=== PATIENT | male | born 1990 | race Two or more races ===

== ENCOUNTER 2021-05-07 13:45 | Emergency (ER) | payer OTHER ==
--- NOTE | 2021-05-07 14:01 | PCM.EKG ---
#1 Interpretation EKG Date: 05/07/21 Time: 14:00 EKG Interpretation Comments: Sinus rhythm rate of 88 no acute ischemia isolated T wave inversion in V1 intervals are borderline right axis deviation
[2021-05-07] MEDS ORDERED: Sodium Chloride 0.9% 2.5 ML Syringe FLUSH PRN (14:23)
[2021-05-07] MEDS ORDERED: Sodium Chloride 0.9% 10 ML Syringe FLUSH PRN (14:23)
--- NOTE | 2021-05-07 15:02 | EDM.PDOC ---
ED HPI GENERAL MEDICAL PROBLEM - General Chief Complaint: Chest Pain Stated Complaint: HEART FEELS HEAVY Time Seen by Provider: 05/07/21 13:50 Source of Information: Reports: Patient History Limitations: Reports: No Limitations - History of Present Illness INITIAL COMMENTS - FREE TEXT/NARRATIVE: HISTORY AND PHYSICAL: History of present illness: The patient is a 30-year-old male with a history of mitral valve prolapse who presents to the emergency department with complaints of mid to upper left chest pain. The patient presently sees a nurse practitioner Abilio in [place] for his mitral valve prolapse. The patient states that he took a Tylenol PM last night and throughout the night he started to feel this chest discomfort. He states that when he woke up he felt very sluggish and drank some coffee. He states that when he was in bed and he would lie on his left side with his arm reached out that he felt the pain on the left lateral side, otherwise the pain does not radi ate. He denies any nausea or vomiting. He denies any dizziness or shortness of breath. He denies diaphoresis. Dates he has never had this previously. Patient denies any fever, chills, headache, change in vision, syncope or near syncope. Denies any shortness of breath or cough. Denies any abdominal pain, diarrhea, constipation or dysuria. Has not noted any blood in urine or stool. Patient has been eating and drinking appropriately. The patient states that he had been on lisinopril 10 mg daily and increased his dose to 20 mg daily without consulting his doctor. He states that he just did not have time to follow-up. Review of systems: As per history of present illness and below otherwise all systems reviewed and negative. Past medical history: As per history of present illness and as reviewed below otherwise noncontributory. Surgical history: As per history of present illness and as reviewed below otherwise noncontributory. Social history: See social history for further information Family history: As per history of present illness and as reviewed below otherwise noncontributory. Physical exam: General: Well developed and well nourished. Alert and orientated x 3. Nontoxic in appearance and in no acute distress. Vital signs are stable and have been reviewed by me. Nursing notes were reviewed. HEENT: Atraumatic, normocephalic, pupils equal and reactive bilaterally, nega tive for conjunctival pallor or scleral icterus, mucous membranes moist, TMs normal bilaterally, throat clear, neck supple, nontender, trachea midline. No drooling or trismus noted. No meningeal signs. No hot potato voice noted. Lungs: Clear to auscultation bilaterally. No wheezes, rales, or rhonchi. Chest nontender. Normal work of breathing, no accessory muscles used. Heart: S1S2, regular rate and rhythm without overt murmur, gallops, or rubs. No JVD. No peripheral edema Abdomen: Soft, nondistended, nontender. Normoactive bowel sounds. Negative for masses or costovertebral tenderness. Skin: Intact, warm, dry. No lesions or rashes noted. Hematologic: No petechiae or purpra. Mucosa appropriate color and normal nail bed color and refill. Extremities: Atraumatic, moves all extremities per self without difficulty or deficits, negative for cords or calf pain. Neurovascular unremarkable. Neuro: Awake, alert, oriented. Cranial nerves II through XII unremarkable. Cerebellum unremarkable. Motor and sensory unremarkable throughout. Exam nonfocal. Psychiatric: Mood and affect are appropriate. Normal thought process. Answering questions appropriately. Notes: *This patient was seen and evaluated during the 2019 SARS-CoV-2 novel coronavirus pandemic period. Community viral transmission is ongoing at time of this encounter and the emergency department is operating under pandemic response procedures. As stated above the patient is a 30-year-old male with a history of mitral valve prolapse who presents to the emergency department with left-sided chest pain that started last night. The patient has no other symptoms such as nausea vomiting, shortness of breath, diaphoresis, or dizziness. The patient's initial EKG was sinus rhythm with no signs of ST elevation or ischemia as read per Dr. Cordova. I have ordered a cardiac work-up. The patient appears to be comfortable at this time. The patient's CBC is unremarkable. The patient's INR and D-dimer are within normal limits. The patient's chemistry panel is unremarkable. The patient's troponin is within normal limits. The patient's lipase is 90. I informed the patient of his test results and of his heart score of 1 which puts him at low risk for any kind of cardiac event. The patient's blood pressure had been elevated at presentation but after resting and a blood the patient's blood pressure is 136/72 and his heart rate is in the 70s. The patient acknowledges that he feels less full after being in the emergency department. 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 I suggested to the patient that this is most likely muscular in nature and not cardiac. I advised the patient to find some kind of stress relief such as meditation or some kind of breathing techniques to help him get through the bus route. I advised the patient to follow-up with his news producer on Sunday. I gave the patient detailed instructions on when he needs to return to the emergency department. The patient is agreeable with this discharge plan. I have talked with the patient about today's findings, in addition to providing specific details for plan of care. Reassessment at the time of disposition demonstrates that the patient is in no acute distress. The patient is stable for discharge, counseling was provided and we discussed in great detail signs and symptoms that would prompt them to return to the Emergency Department. Medication, follow up and supportive care measures were reviewed and discussed. Voices understanding and is agreeable to plan of care. Denies any further questions or concerns at this time. Diagnostics: CBC, CMP, troponin, CXR, D-dimer, INR, lipase Impression: Chest pain Plan: 1. You were evaluated today on an emergent basis. Your plaints of chest pain were evaluated with an EKG which showed you in normal sinus rhythm and no signs of a heart attack. Your blood work was normal this included an cardiac enzyme known as troponin. As your pain started last night this would have been elevated, however it was within normal range. Your heart score is a 1 which is very low. I suspect this has to do with the stress level you are having and most likely muscular in nature. You can take Tylenol for the discomfort. 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 When you first arrived in the emergency department your blood pressure was slightly elevated but after resting your blood pressure was normal at 136/72. As we discussed if you go home and there is some change in your pain or you become short of breath, become sweaty or clammy, or have some dizziness please return to the emergency department for further evaluation. Be sure to follow-up with your news producer on Sunday. 2. You can alternate Tylenol and ibuprofen as needed for pain and fever management. 3. We encourage you to follow up with your primary care provider and/or recommended specialist in the next few days for re-evaluation and further care/management. 4. If your symptoms should worsen, new symptoms develop or any of the signs and symptoms we discussed should arise please return to the emergency room or call 911 (if needed). Definitive disposition and diagnosis as appropriate pending reevaluation and review of above. - Related Data Allergies Allergy/AdvReac Type Severity Reaction Status Date / Time No Known Allergies Allergy Verified 05/07/21 13:56 Home Meds: Home Meds lisinopriL [Lisinopril] 10 mg PO DAILY 05/07/21 [History] Past Medical History - Past Surgical History Other Cardiovascular Surgeries/Procedures: Mitral valve prolapse Social & Family History - Tobacco Use Tobacco Use Status *Q: Never Tobacco User - Recreational Drug Use Drug Use in Last 12 Months: No ED ROS GENERAL - Review of Systems Review Of Systems: Comprehensive ROS is negative, except as noted in HPI. ED EXAM, GENERAL - Physical Exam Exam: See Below (See dictation) Course - Vital Signs Last Recorded V/S: Last Vital Signs Temp 99.2 F 05/07/21 13:56 Pulse 72 05/07/21 15:07 Resp 16 05/07/21 15:07 BP 144/85 H 05/07/21 15:07 Pulse Ox 96 05/07/21 15:07 - Orders/Labs/Meds Orders: Active Orders 24 hr Category Date Time Status Cardiac Monitoring [RC] . DIRECTED Care 05/07/21 14:23 Active Sodium Chloride 0.9% [Saline Flush] Med 05/07/21 14:23 Active 10 ml FLUSH ASDIRECTED PRN Sodium Chloride 0.9% [Saline Flush] Med 05/07/21 14:23 Active 2.5 ml FLUSH ASDIRECTED PRN Saline Lock Insert [OM.PC] Stat Oth 05/07/21 14:23 Ordered Medication Orders Sodium Chloride (Sodium Chloride 0.9% 10 Ml Syringe) 10 ml FLUSH ASDIRECTED PRN PRN Reason: Keep Vein Open Last Admin: 05/07/21 14:28 Dose: 10 ml Documented by: LISA Sodium Chloride (Sodium Chloride 0.9% 2.5 Ml Syringe) 2.5 ml FLUSH ASDIRECTED PRN PRN Reason: Keep Vein Open Last Admin: 05/07/21 14:28 Dose: 2.5 ml Documented by: LISA Labs: Laboratory Tests 05/07/21 05/07/21 05/07/21 Range/Units 13:58 13:58 13:58 WBC 9.64 (4.0-11.0) K/uL RBC 5.37 (4.50-5.90) M/uL Hgb 15.2 (13.0-17.0) g/dL Hct 44.7 (38.0-50.0) % MCV 83.2 (80.0-98.0) fL MCH 28.3 (27.0-32.0) pg MCHC 34.0 (31.0-37.0) g/dL RDW Std Deviation 39.3 (28.0-62.0) fl RDW Coeff of Melanie 13 (11.0-15.0) % Plt Count 272 (150-400) K/uL MPV 11.00 (7.40-12.00) fL Neut % (Auto) 68.7 (48.0-80.0) % Lymph % (Auto) 19.3 (16.0-40.0) % [place] % (Auto) 9.1 (0.0-15.0) % Eos % (Auto) 2.3 (0.0-7.0) % Baso % (Auto) 0.6 (0.0-1.5) % Neut # (Auto) 6.6 H (1.4-5.7) K/uL Lymph # (Auto) 1.9 (0.6-2.4) K/uL [place] # (Auto) 0.9 H (0.0-0.8) K/uL Eos # (Auto) 0.2 (0.0-0.7) K/uL Baso # (Auto) 0.1 (0.0-0.1) K/uL Nucleated RBC % 0.0 /100WBC Nucleated RBCs # 0 K/uL INR 0.99 D-Dimer, Quantitative 0.21 (0.0-0.50) mg/L FEU Sodium 139 (136-148) mmol/L Potassium 3.9 (3.5-5.1) mmol/L Chloride 103 (98-107) mmol/L Carbon Dioxide 27.3 (21.0-32.0) mmol/L BUN 12 (7.0-18.0) mg/dL Creatinine 1.1 (0.8-1.3) mg/dL Est Cr Clr Drug Dosing 94.14 mL/min Estimated GFR (MDRD) > 60.0 ml/min Glucose 102 (74-106) mg/dL Calcium 9.0 (8.5-10.1) mg/dL Total Bilirubin 0.5 (0.2-1.0) mg/dL AST 18 (15-37) IU/L ALT 46 (14-63) IU/L Alkaline Phosphatase 89 (46-116) U/L Troponin I < 0.050 (0.000-0.056) ng/mL Total Protein 7.5 (6.4-8.2) g/dL Albumin 4.5 (3.4-5.0) g/dL Globulin 3.0 (2.6-4.0) g/dL Albumin/Globulin Ratio 1.5 (0.9-1.6) Lipase 90 (73-393) U/L Meds: Medications Generic Name Dose Route Start Last Admin Trade Name Freq PRN Reason Stop Dose Admin Sodium Chloride 10 ml 05/07/21 14:23 05/07/21 14:28 Sodium Chloride 0.9% 10 Ml Syringe FLUSH 10 ml ASDIRECTED PRN Administration Keep Vein Open Sodium Chloride 2.5 ml 05/07/21 14:23 05/07/21 14:28 Sodium Chloride 0.9% 2.5 Ml Syringe FLUSH 2.5 ml ASDIRECTED PRN Administration Keep Vein Open Departure - Departure Time of Disposition: 15:31 Disposition: Home, Self-Care 01 Condition: Good Clinical Impression: Atypical chest pain, Paroxysmal supraventricular tachycardia Instructions: Nonspecific Chest Pain, Adult, [id number] Referrals: PCP,None [Primary Care Provider] - Forms: ED Department Discharge Additional Instructions: The following information is given to patients seen in the emergency department who are being discharged to home. This information is to outline your options for follow-up care. We provide all patients seen in our emergency department with a follow-up referral. The need for follow-up, as well as the timing and circumstances, are variable depending upon the specifics of your emergency department visit. If you don't have a primary care physician on staff, we will provide you with a referral. We always advise you to contact your personal physician following an emergency department visit to inform them of the circumstance of the visit and for follow-up with them and/or the need for any referrals to a consulting specialist. The emergency department will also refer you to a specialist when appropriate. This referral assures that you have the opportunity for follow-up care with a specialist. All of these measure are taken in an effort to provide you with optimal care, which includes your follow-up. Under all circumstances we always encourage you to contact your private physician who remains a resource for coordinating your care. When calling for follow-up care, please make the office aware that this follow-up is from your recent emergency room visit. If for any reason you are refused follow-up, please contact the [facility] Emergency Department at and asked to speak to the emergency department charge nurse. [facility] [address] [place] [id number] [place] [address] Plan: 1. You were evaluated today on an emergent basis. Your plaints of chest pain were evaluated with an EKG which showed you in normal sinus rhythm and no signs of a heart attack. Your blood work was normal this included an cardiac enzyme known as troponin. As your pain started last night this would have been elevated, however it was within normal range. Your heart score is a 1 which is very low. I suspect this has to do with the stress level you are having and most likely muscular in nature. You can take Tylenol for the discomfort. 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 When you first arrived in the emergency department your blood pressure was slightly elevated but after resting your blood pressure was normal at 136/72. As we discussed if you go home and there is some change in your pain or you become sh ort of breath, become sweaty or clammy, or have some dizziness please return to the emergency department for further evaluation. Be sure to follow-up with your news producer on Sunday. 2. You can alternate Tylenol and ibuprofen as needed for pain and fever management. 3. We encourage you to follow up with your primary care provider and/or recommended specialist in the next few days for re-evaluation and further care/management. 4. If your symptoms should worsen, new symptoms develop or any of the signs and symptoms we discussed should arise please return to the emergency room or call 911 (if needed). Sepsis Event Note (ED) - Evaluation Sepsis Screening Result: No Definite Risk - Focused Exam Vital Signs: Vital Signs Temp Pulse Resp BP Pulse Ox 05/07/21 15:07 72 16 144/85 H 96 05/07/21 13:56 99.2 F 96 18 163/96 H 99 - My Orders Last 24 Hours: My Active Orders 05/07/21 14:23 Cardiac Monitoring [RC] . DIRECTED Sodium Chloride 0.9% [Saline Flush] 10 ml FLUSH ASDIRECTED PRN Sodium Chloride 0.9% [Saline Flush] 2.5 ml FLUSH ASDIRECTED PRN Saline Lock Insert [OM.PC] Stat - Assessment/Plan Last 24 Hours: My Active Orders 05/07/21 14:23 Cardiac Monitoring [RC] . DIRECTED Sodium Chloride 0.9% [Saline Flush] 10 ml FLUSH ASDIRECTED PRN Sodium Chloride 0.9% [Saline Flush] 2.5 ml FLUSH ASDIRECTED PRN Saline Lock Insert [OM.PC] Stat
--- NOTE | 2021-05-07 15:13 | CR ---
INDICATION: Chest pain TECHNIQUE: Chest 1 view. COMPARISON: None FINDINGS: Heart is normal in size. Pulmonary vasculature is within normal limits. The lungs are clear. IMPRESSION: No acute process. Dictated by Radha Rutherford MD @ 05/07/2021 3:10:39 PM (Electronically Signed)
[2021-05-07 15:14] LABS: BLOOD UREA NITROGEN,BUN 12 mg/dL (7.0-18.0); CARBON DIOXIDE,CO2 27.3 mmol/L (21.0-32.0); CHLORIDE,CL 103 mmol/L (98-107); GLUCOSE RANDOM 102 mg/dL (74-106); LIPASE 90 U/L (73-393); POTASSIUM,K 3.9 mmol/L (3.5-5.1); SODIUM,NA 139 mmol/L (136-148)
== END 2021-05-07 15:42 | disposition home or self-care (01) ==
LOC: MW.ED 13:45
DX: R07.89 Other chest pain (principal); I47.1 Supraventricular tachycardia; Z86.79 Personal history of other diseases of the circulatory system
CPT/HCPCS: 36415; 71045; 71045-26; 80053; 83690; 84484; 85025; 85379; 85610; 93005; 99285-25

== ENCOUNTER 2022-01-27 21:36 | Emergency (ER) | payer SELFPAY ==
[2022-01-28 01:05] LABS: CARBON DIOXIDE,CO2 28.4 mmol/L (21.0-32.0); POTASSIUM,K 4.2 mmol/L (3.5-5.1)
== END 2022-01-28 02:23 | disposition home or self-care (01) ==
LOC: MW.ED 21:36
DX: R10.9 Unspecified abdominal pain (principal); Z72.0 Tobacco use
CPT/HCPCS: 36415; 74176; 74176-26; 80053; 81001; 85025; 99282; 99284

== ENCOUNTER 2022-08-04 20:41 | Emergency (ER) | payer SELFPAY ==
[2022-08-04] MEDS ORDERED: Alum Hydro/Mag Hydro/Simeth XS 15 ML, Lidocaine 2% 5 ML PO ONE ×2 (20:59)
[2022-08-04 22:09] LABS: POTASSIUM,K 3.4 mmol/L (3.5-5.1)
[2022-08-05] MEDS ORDERED: Ketorolac 30 MG/ML SDV IM STA (00:21)
== END 2022-08-05 00:51 | disposition home or self-care (01) ==
LOC: MW.ED 20:41
DX: D73.5 Infarction of spleen (principal); I10 Essential (primary) hypertension; Z86.16 Personal history of COVID-19; Z79.899 Other long term (current) drug therapy
CPT/HCPCS: 36415; 71046; 74176; 80053; 83690; 84484; 85025; 93005; 96374; 99284; A9270; J1885; 93010

== ENCOUNTER 2022-09-02 00:59 | Emergency (ER) | payer OTHER, BC ==
[2022-09-02 02:10] LABS: CARBON DIOXIDE,CO2 26.5 mmol/L (21.0-32.0); POTASSIUM,K 4.4 mmol/L (3.5-5.1)
[2022-09-02] MEDS ORDERED: Iopamidol 755 MG/ML 500 ML Multipack Bottle IVPUSH ONE (02:40)
[2022-09-02] MEDS ORDERED: Acetaminophen/HYDROcodone 325-5 MG Tab PO ONE (03:13)
[2022-09-02] MEDS ORDERED: Sodium Chloride 0.9% 500 ML IV SCH (03:15)
[2022-09-02] MEDS ORDERED: Sodium Chloride 0.9% 500 ML IV STA (03:21)
[2022-09-02] MEDS ORDERED: Heparin Sodium 5,000 Units/ML Vial IVPUSH ONE (05:21)
[2022-09-02] MEDS ORDERED: Heparin Sodium/0.45% NaCl 500 ML IV SCH (05:30)
[2022-09-02] MEDS ORDERED: fentaNYL 50 MCG/ML SDV IVPUSH ONE (06:23)
== END 2022-09-02 07:37 ==
LOC: MW.ED 00:59
DX: I74.9 Embolism and thrombosis of unspecified artery (principal); I10 Essential (primary) hypertension; Z86.16 Personal history of COVID-19; Z88.4 Allergy status to anesthetic agent; Z79.899 Other long term (current) drug therapy; Z20.822 Contact with and (suspected) exposure to COVID-19
CPT/HCPCS: 36415; 71045; 71275; 72191; 73130; 74175; 80053; 80305; 81001; 82550; 83605; 84484; 85025; 85379; 85610; 87040; 87077; 87154; 87186; 87635; 93005; 96361; 96365; 96375; 99285; A9270; J1644; J3010; J7040; Q9967; U0002

== ENCOUNTER 2023-01-16 23:00 | Emergency (ER) | payer OTHER, BC ==
[2023-01-16] MEDS ORDERED: Sodium Chloride 0.9% 1,000 ML IV ONE (23:19)
[2023-01-16] MEDS ORDERED: Sodium Chloride 0.9% 10 ML Syringe FLUSH PRN (23:19)
[2023-01-16] MEDS ORDERED: Sodium Chloride 0.9% 2.5 ML Syringe FLUSH PRN (23:19)
[2023-01-16 23:24] LABS: BASOPHILS PERCENT AUTO 0.6 % (0.0-1.5); EOSINOPHILS ABSOLUTE AUTO 0.2 K/uL (0.0-0.7); EOSINOPHILS PERCENT AUTO 2.4 % (0.0-7.0); HEMATOCRIT 38.1 % (38.0-50.0); HEMOGLOBIN 12.5 g/dL (13.0-17.0); LYMPHOCYTES ABSOLUTE AUTO 2.3 K/uL (0.6-2.4); LYMPHOCYTES PERCENT AUTO 36.7 % (16.0-40.0); MEAN CORPUSCULAR HEMOGLOBIN 27.7 pg (27.0-32.0); MEAN CORPUSCULAR HGB CONC 32.8 g/dL (31.0-37.0); MEAN CORPUSCULAR VOLUME 84.3 fL (80.0-98.0); MONOCYTES ABSOLUTE AUTO 0.5 K/uL (0.0-0.8); MONOCYTES PERCENT AUTO 7.1 % (0.0-15.0); NEUTROPHILS ABSOLUTE AUTO 3.4 K/uL (1.4-5.7); NEUTROPHILS PERCENT AUTO 53.2 % (48.0-80.0); NRBC ABSOLUTE 0 K/uL; PLATELET COUNT,PLT 223 K/uL (150-400); RED BLOOD CELL COUNT 4.52 M/uL (4.50-5.90); WHITE BLOOD CELL COUNT,WBC 6.38 K/uL (4.0-11.0)
[2023-01-16 23:49] LABS: A/G RATIO 1.6 (0.9-1.6); ALANINE AMINOTRANSFERASE,ALT 30 IU/L (14-63); ALBUMIN 4.2 g/dL (3.4-5.0); ALKALINE PHOSPHATASE 75 U/L (46-116); ASPARTATE AMNIOTRANSFERASE,AST 11 IU/L (15-37); BILIRUBIN TOTAL 0.4 mg/dL (0.2-1.0); BLOOD UREA NITROGEN,BUN 11 mg/dL (7.0-18.0); CALCIUM 8.7 mg/dL (8.5-10.1); CARBON DIOXIDE,CO2 19.8 mmol/L (21.0-32.0); CHLORIDE,CL 101 mmol/L (98-107); CREATININE 1.3 mg/dL (0.8-1.3); EST CRCL DRUG DOSING (CG) 78.19 mL/min; ETHANOL BLOOD MEDICAL <3 mg/dL; GLUCOSE RANDOM 124 mg/dL (74-106); POTASSIUM,K 3.5 mmol/L (3.5-5.1); PROTEIN TOTAL,TP 6.9 g/dL (6.4-8.2); SODIUM,NA 138 mmol/L (136-148)
[2023-01-16 23:52] LABS: ESTIMATED GFR 74 mL/min (>60)
[2023-01-17] MEDS ORDERED: Baclofen 10 MG Tab PO ONE (00:48)
[2023-01-17 03:14] LABS: APPEARANCE,URINE CLEAR; BILIRUBIN,URINE NEGATIVE (NEGATIVE); COLOR,URINE YELLOW; GLUCOSE,URINE NEGATIVE (NEGATIVE); KETONES,URINE NEGATIVE (NEGATIVE); LEUKOCYTE ESTERASE,URINE NEGATIVE (NEGATIVE); NITRITE,URINE NEGATIVE (NEGATIVE); OCCULT BLOOD,URINE TRACE-INTACT (NEGATIVE); PROTEIN,URINE 30 mg/dL (NEGATIVE); UROBILINOGEN,URINE 0.2 EU/dL (<2.0)
[2023-01-17 03:22] LABS: AMPHETAMINES SCREEN, URINE NEGATIVE (CUTOFF=500); BACTERIA,URINE FEW (NEGATIVE); BARBITURATE SCREEN,URINE NEGATIVE (CUTOFF=200); BENZODIAZEPINES SCREEN,URINE NEGATIVE (CUTOFF=150); BUPRENORPHINE SCREEN,URINE NEGATIVE (CUTOFF=10); EPITHELIAL CELLS,URINE FEW (NONE-FEW); METHADONE SCREEN, URINE NEGATIVE (CUTOFF=200); METHAMPHETAMINES SCREEN, URINE NEGATIVE (CUTOFF=500); OXYCODONE SCREEN,URINE NEGATIVE (CUT0FF=100); PCP SCREEN,URINE NEGATIVE (CUTOFF=25); PROPOXYPHENE SCREEN,URINE NEGATIVE (CUTOFF=300); THC SCREEN,URINE 20 NG/ML NEGATIVE (CUTOFF=50)
[2023-01-17 03:23] LABS: AMORPHOUS SEDIMENT,URINE LIGHT (NEGATIVE)
== END 2023-01-17 03:13 | disposition home or self-care (01) ==
LOC: MW.ED 23:00
DX: R56.9 Unspecified convulsions (principal); G93.89 Other specified disorders of brain; I10 Essential (primary) hypertension; Z79.899 Other long term (current) drug therapy; Z88.8 Allergy status to other drugs, medicaments and biological substances; Z86.16 Personal history of COVID-19
CPT/HCPCS: 36415; 70450; 80053; 80305; 80307; 81001; 83735; 84484; 85025; 93005; 96374; 99285; A9270; J1953; J3490; J7030; J7060; 93010; 99283